=== PATIENT | male | born 1965 | race Hispanic/Latino ===

== ENCOUNTER 2021-11-27 06:53 | Observation (INO) | payer BC ==
[~2021-11-27] VITALS: Ht 154.9 cm; Wt 77.1 kg
[2021-11-27] MEDS ORDERED: TRANEXAMIC ACID 1,000 MG/10 ML ML ONE (07:10)
[2021-11-27] MEDS ORDERED: Vancomycin IV 1,000 MG ONE (07:10)
[2021-11-27] MEDS ORDERED: SODIUM CHLORIDE 0.9% 500ML 500 ML ONE (07:10)
[2021-11-27] MEDS ORDERED: CELECOXIB 200 MG CAP ONE (07:37)
[2021-11-27] MEDS ORDERED: GABAPENTIN 300 MG CAP ONE (07:38)
[2021-11-27] MEDS ORDERED: DEXAMETHASONE SOD PHOS 10 MG/1 ML VIAL ONE (07:38)
[2021-11-27] MEDS ORDERED: ROPIVACAINE 246.25 MG, EPINEPHRINE HCL 1:1000 1ML 0.5 MG, CLONIDINE HCL 0.08 MG, KETORO... INJ ONE ×5 (08:00)
[2021-11-27] MEDS ORDERED: HYDROCODONE/APAP 5MG-325MG TAB PO PRN (09:45)
[2021-11-27] MEDS ORDERED: DIPHENHYDRAMINE HCL INJ 50 MG/ML VIAL IV PRN (09:45)
[2021-11-27] MEDS ORDERED: ZOLPIDEM TARTRATE 5 MG TAB PO PRN (09:45)
[2021-11-27] MEDS ORDERED: ONDANSETRON HCL INJ 2MG/ML 2ML 2 MG/ML VIAL IV PRN (09:45)
[2021-11-27] MEDS ORDERED: ACETAMINOPHEN 650 MG SUPP PR PRN (09:45)
[2021-11-27] MEDS ORDERED: DOCUSATE SODIUM 100 MG CAP PO PRN (09:45)
[2021-11-27] MEDS ORDERED: HYDROCODONE/APAP 7.5MG-325MG 1 EA TAB PO PRN (09:45)
[2021-11-27] MEDS ORDERED: KETOROLAC TROMETHAMINE 30 MG/ML VIAL IV PRN (09:45)
[2021-11-27] MEDS ORDERED: SODIUM CHLORIDE 0.9% 1000ML 1,000 ML IV SCH (09:45)
[2021-11-27 11:12] VITALS: BP 98/64
[2021-11-27 11:36] VITALS: BP 98/64
[2021-11-27 12:02] VITALS: BP 98/64
[2021-11-27] MEDS ORDERED: LIDOCAINE HCL 2% LOCAL INJ 5 ML SDV VIAL INJ ONE (12:49)
[2021-11-27] MEDS ORDERED: EPHEDRINE SULFATE INJ 50 MG/ML VIAL ONE (12:49)
[2021-11-27] MEDS ORDERED: POVIDONE IODINE 0.05% 0.05 % ML PO ONE (12:49)
[2021-11-27] MEDS ORDERED: PROPOFOL IV EMULSION 10 MG/ML 20 ML VIAL ONE (12:49)
[2021-11-27] MEDS ORDERED: BUPIVACAINE HCL 0.5% INJ 30 ML VIAL INJ ONE (13:04)
[2021-11-27] MEDS ORDERED: FENTANYL CITRATE/PF 100MCG/2 ML INJ ONE (13:13)
[2021-11-27] MEDS ORDERED: MIDAZOLAM HCL 2 MG/2 ML VIAL ONE (13:13)
[2021-11-27 16:03] VITALS: BP 94/56
[2021-11-27] MEDS ORDERED: ASPIRIN 325 MG TAB PO SCH (17:00)
[2021-11-27] MEDS ORDERED: Cefazolin 1 GM in SODIUM CHLORIDE 0.9% 50ML 50 ML IV SCH (17:00)
[2021-11-27] MEDS ORDERED: CELECOXIB 200 MG CAP PO SCH (17:00)
[2021-11-28] MEDS ORDERED: ACETAMINOPHEN 1000 MG/100 ML IV PRN (09:45)
== END 2021-11-27 18:37 | disposition home or self-care (01) ==
LOC: OR 06:53 → PACU V 09:43 → MED/SURG 10:58
PROVIDERS: ADMIT Specialist; ATTEND Specialist
DX: M16.11 Unilateral primary osteoarthritis, right hip (principal); Z20.822 Contact with and (suspected) exposure to COVID-19
CPT/HCPCS: 27130; 72170; 86850; 86900; 86920; 94799; 96361; 97110; 97116; 97161; 97530; G0378; J0171; J0690; J1100; J1885; J2001; J2250; J2704; J2795; J3010; J3370; J7030; J7040; U0002